=== PATIENT | female | born 1980 | race Caucasian/White ===

== ENCOUNTER 2017-10-09 10:45 | Observation (INO) | payer BC | END 2017-10-09 12:18 | disposition home or self-care (01) | LOC: EDSTATUS 10:45 → LDH 10:49 → UNDOADMOB 10:49 | PROVIDERS: ADMIT Specialist; ATTEND Specialist | DX: O75.82 Onset (spontaneous) of labor after 37 completed weeks of gestation but before 39 completed weeks gestation, with delivery by (planned) cesarean section (principal); Z87.891 Personal history of nicotine dependence; Z90.49 Acquired absence of other specified parts of digestive tract; Z3A.39 39 weeks gestation of pregnancy | CPT/HCPCS: 59025; 76819; G0378 ×2 ==

== ENCOUNTER 2017-10-12 06:16 | Inpatient (IN) | payer BC ==
[~2017-10-12] VITALS: Ht 167.6 cm; Wt 93.0 kg
[2017-10-12] MEDS ORDERED: LACTATED RINGERS 1000ML 1,000 ML IV PRN (07:26)
[2017-10-12] MEDS ORDERED: OXYTOCIN 10 USP UNITS/ML 20 UNIT in LACTATED RINGERS 1000ML 1,000 ML IV SCH (07:30)
[2017-10-12] MEDS ORDERED: LACTATED RINGERS 1000ML 1,000 ML IV ONE (07:32)
[2017-10-12] MEDS ORDERED: OXYTOCIN 10 USP UNITS/ML ONE ×2 (07:32→12:07)
[2017-10-12 07:52] LABS: HEMATOCRIT 30.9 % (36-48); MEAN CORPUSCULAR HEMOGLOBIN 30.4 pg (27.0-33.0); MEAN CORPUSCULAR HGB CONC 35.2 g/dL (32.0-36.0); MEAN CORPUSCULAR VOLUME 86.2 fL (79-99); NUCLEATED RED BLOOD CELLS 0.1 % (0.0-0.19); PLATELET COUNT (AUTO) 260 K/uL (130-400); RED BLOOD CELL COUNT(AUTO) 3.59 MIL/uL (4.00-5.50); RED CELL DISTRIBUTION WIDTH 25.6 % (11.0-15.5); WHITE BLOOD COUNT (AUTO) 7.7 K/uL (4.8-10.8)
[2017-10-12 07:53] LABS: BILIRUBIN,URINE Negative (NEGATIVE); COLOR,URINE Dark Yellow (YELLOW); GLUCOSE, URINE (UA) Negative (NEGATIVE); KETONES,URINE Trace mg/dL (NEGATIVE); LEUKOCYTE ESTERASE ,URINE Large (NEGATIVE); NITRATE,URINE Negative (NEGATIVE); OCCULT BLOOD,URINE Negative (NEGATIVE); PH,URINE 6.5 (5.0-8.0); PROTEIN,URINE Trace (NEGATIVE)
[2017-10-12 08:00] LABS: APPEARANCE,URINE CLEAR (CLEAR)
[2017-10-12 08:02] LABS: BACTERIA,URINE Few /HPF (None Seen); SQUAMOUS EPITHELIAL CELL,UR Moderate /HPF (0-2); WBC,URINE 26-50 /HPF (0-1)
[2017-10-12] MEDS ORDERED: NALOXONE HCL 0.4 MG/1 ML ML IV PRN (08:30)
[2017-10-12] MEDS ORDERED: EPHEDRINE SULFATE 50 MG/ML AMPULE IVP PRN (08:30)
[2017-10-12] MEDS ORDERED: LACTATED RINGERS 500 ML 500 ML IV PRN (08:30)
[2017-10-12] MEDS ORDERED: ROPIVACAINE 0.2%200ML EPIDURAL 200 ML EP SCH (08:30)
[2017-10-12] MEDS ORDERED: WITCH HAZEL 1 PAD TP PRN (11:45)
[2017-10-12] MEDS ORDERED: BENZOCAINE/LANOLIN/ALOE VERA 60 ML AEROSOL TP PRN (11:45)
[2017-10-12] MEDS ORDERED: MEASLES/MUMPS/RUBELLA VACCINE, LIVE 0.5 ML/VIAL SQ PRN (11:45)
[2017-10-12] MEDS ORDERED: LANOLIN 30GM OINTMENT TP PRN (11:45)
[2017-10-12] MEDS ORDERED: DIPH,PERTUSS(ACELL),TET VAC/PF 0.5 ML VIAL IM PRN (11:45)
[2017-10-12 13:00] VITALS: BP 106/72
[2017-10-12 16:00] VITALS: BP 114/80
[2017-10-12 19:15] VITALS: BP 114/82
[2017-10-12] MEDS: DOCUSATE SODIUM 100 MG CAP PO SCH (21:02)
[2017-10-12] MEDS: IBUPROFEN 800 MG TAB PO PRN (21:08)
[2017-10-12 23:00] VITALS: BP 106/68
[2017-10-13] VITALS (7 sets, daily range): BP systolic 102–114; BP diastolic 67–78
[2017-10-13 08:24] LABS: HEPATITIS Bs ANTIGEN SCREEN P Negative (Negative)
[2017-10-13] MEDS: DOCUSATE SODIUM 100 MG CAP PO SCH ×2 (08:53→21:07)
[2017-10-13] MEDS: IBUPROFEN 800 MG TAB PO PRN (08:54)
[2017-10-14 00:03] VITALS: BP 126/66
[2017-10-14 04:31] VITALS: BP 110/62
[2017-10-14 07:17] VITALS: BP 109/70
[2017-10-14] MEDS: DOCUSATE SODIUM 100 MG CAP PO SCH (08:30)
[2017-10-14] MEDS: IBUPROFEN 800 MG TAB PO PRN (10:44)
[2017-10-14 11:19] VITALS: BP 115/80
== END 2017-10-14 11:30 | disposition home or self-care (01) | DRG 775 ==
LOC: LDH 06:16 → WSH 13:05
PROVIDERS: ADMIT Specialist; ATTEND Specialist
PROC: 0W8NXZZ Division of Female Perineum, External Approach (ICD-10-PCS; principal; 2017-10-12)
PROC: 10E0XZZ Delivery of Products of Conception, External Approach (ICD-10-PCS; 2017-10-12)
PROC: 3E0R3BZ Introduction of Anesthetic Agent into Spinal Canal, Percutaneous Approach (ICD-10-PCS; 2017-10-12)
PROC: 00HU33Z Insertion of Infusion Device into Spinal Canal, Percutaneous Approach (ICD-10-PCS; 2017-10-12)
PROC: 3E0234Z Introduction of Serum, Toxoid and Vaccine into Muscle, Percutaneous Approach (ICD-10-PCS; 2017-10-12)
PROC: 3E0134Z Introduction of Serum, Toxoid and Vaccine into Subcutaneous Tissue, Percutaneous Approach (ICD-10-PCS; 2017-10-12)
PROC: 3E0334Z Introduction of Serum, Toxoid and Vaccine into Peripheral Vein, Percutaneous Approach (ICD-10-PCS; 2017-10-12)
DX: O69.81X0 Labor and delivery complicated by cord around neck, without compression, not applicable or unspecified (principal); D64.9 Anemia, unspecified; Z37.0 Single live birth; Z3A.40 40 weeks gestation of pregnancy; Z87.891 Personal history of nicotine dependence; O99.02 Anemia complicating childbirth; O26.893 Other specified pregnancy related conditions, third trimester; Z67.41 Type O blood, Rh negative; Z29.13 Encounter for prophylactic Rho(D) immune globulin; O99.844 Bariatric surgery status complicating childbirth
CPT/HCPCS: 36415; 81001; 83033; 85027; 86592; 86850; 86900; 86901; 87340; A4314; J2590; J2791; J7120